=== PATIENT | female | born 1955 | race Caucasian/White ===

== ENCOUNTER 2020-10-11 13:48 | Outpatient (CLI) | payer MEDICAID ==
[~2020-10-11 13:48] MED LIST: OMEPRAZOLE40 M1 ORAL
[2020-10-11 14:00] VITALS: BP 120/79
--- NOTE | 2020-10-11 14:24 | General Progress Note ---
Subjective ROS Limited/Unobtainable: Yes Allergies: Coded Allergies: No Known Allergies (Unverified , 06/08/20) Objective Last 24 Hour Vital Signs Date Time Temp Pulse Resp B/P (MAP) Pulse Ox O2 Delivery O2 Flow Rate FiO2 10/11/20 14:00 97.1 65 16 120/79 99 General Appearance: no apparent distress EENT: normal ENT inspection Neck: normal alignment Cardiovascular: normal rate Respiratory/Chest: decreased breath sounds Abdomen: normal bowel sounds, non tender, soft Extremities: non-tender Assessment/Plan Assessment/Plan: 1. History of head injury. 2. H. pylori-positive gastritis, status post treatment. 3. Mix esophagus. 4. Esophagitis. 5. The patient has history of chronic GERD. 6. constipation 7. ? SIBO ppi colace fiber Xifaxan repeat EGD in march Luke Ortiz MD Oct 11, 2020 14:24
== END 2020-10-11 15:48 | disposition home or self-care (01) ==
LOC: PAN 13:48
DX: K22.70 Barrett's esophagus without dysplasia (principal); K29.70 Gastritis, unspecified, without bleeding; K21.9 Gastro-esophageal reflux disease without esophagitis; K59.00 Constipation, unspecified
CPT/HCPCS: 99212